=== PATIENT | male | born 1980 ===

== ENCOUNTER → 2018-01-22 | Outpatient (CLI) | payer OTHER ==
[~2018-01-22] MED LIST: DIPH1TAB98 PO; FEXO1TAB46 PO
--- NOTE | 2018-01-24 17:35 | POLYSOMNOGRAPH REPORT ---
SLEEP STUDY REPORT CLINICAL DATA: The patient is a 37-year-old male with a prior history of delayed sleep phase syndrome. He has symptoms of snoring and nocturnal gasping. His [place] sleepiness scale score is only 3. His BMI is 31.56. On the evening of 01/23/2018, a home sleep apnea test was performed using the [employer] type 3 monitor. RECORDING RESULTS: The total recording time was 8 hours. The patient's estimated sleep time was 6.7 hours. RESPIRATORY DATA: The patient had a total of 86 respiratory events including 43 obstructive apneas, 4 mixed apneas, 1 central apnea, and 38 hypopneas. Hypopneas were scored according to the 4% desaturation rule. The AIDA was elevated at 12.8 events per hour. The maximum respiratory event was 35 seconds. OXIMETRY DATA: The mean saturation for the night was 93%. The minimum saturation was 85%. There was an estimated total of 5 minutes with saturations less than 89%. HEART RATE DATA: The minimum heart rate was 50 beats per minute. The mean heart rate was 69 beats per minute. SNORING DATA: Snoring was present throughout the test. IMPRESSION: 1. Obstructive sleep apnea - mild. 2. Delayed sleep phase syndrome - by history. RECOMMENDATIONS: 1. It is advised that the patient be treated with nasal CPAP. Considering the patient's home sleep schedule, it likely would be best that this be done by auto CPAP. 2. Weight loss is advised in light of the elevation of body mass index of 31.56. 3. It is suggested that he avoid sleeping in the supine position. Typically, there are more respiratory events and snoring while supine. 4. As much as possible, the patient should have a regular sleep-wake schedule and allow approximately 7.5 hours of sleep time for 24 hours.
== END | disposition home or self-care (01) ==
LOC: C.NEUR 14:58
PROVIDERS: ATTEND Internal Medicine Pulmonary Disease
DX: G47.33 Obstructive sleep apnea (adult) (pediatric) (principal)